=== PATIENT | female | born 1940 | race Caucasian/White ===

== ENCOUNTER → 2016-08-02 | Outpatient (CLI) | payer OTHER | LOC: BHLMT 14:00 | PROVIDERS: ATTEND Internal Medicine Cardiovascular Disease | DX: R07.9 Chest pain, unspecified (principal) | CPT/HCPCS: 78452; 93017; A9500; J2785 ==

== ENCOUNTER 2016-08-10 05:51 | Day surgery (SDC) | payer OTHER ==
[2016-08-10] MEDS ORDERED: LR 1,000 ML IV ONE (06:23)
[2016-08-10] MEDS ORDERED: LIDOCAINE 1% 2 ML INJ ID PRN (06:23)
--- NOTE | 2016-08-10 07:23 | PDANEPAE ---
ANE Past Medical History - Cardiovascular History Hx Hypertension: No Hx Arrhythmias: No Hx Chest Pain: No Hx Coronary Artery / Peripheral Vascular Disease: No Hx CHF / Valvular Disease: No Hx Palpitations: No - Pulmonary History Hx COPD: No Hx Asthma/Reactive Airway Disease: No Hx Recent Upper Respiratory Infection: No Hx Oxygen in Use at Home: No - Neurologic History Hx Cerebrovascular Accident: No Hx Seizures: Yes Hx Dementia: No - Endocrine History Hx Diabetes: No Hypothyroid: Yes - Renal History Hx Renal Disorders: No - Liver History Hx Hepatic Disorders: No - Neurological & Psychiatric Hx Hx Neurological and Psychiatric Disorders: Yes - Cancer History Hx Cancer: Yes - Congenital Disorder History Hx Congenital Disorders: No - GI History Hx Gastrointestinal Disorders: Yes - Chronic Pain History Chronic Pain: No ANE Review of Systems - Exercise capacity METS (RN): 4 METS ANE Patient History - Allergies Allergies/Adverse Reactions: adhesive tape Allergy (Verified 08/09/16 15:44) Rash carbamazepine [From Tegretol] Allergy (Verified 08/09/16 15:44) Rash phenobarbital Allergy (Verified 08/09/16 15:44) Rash phenytoin [From Dilantin] Allergy (Verified 08/09/16 15:44) Rash promethazine [From Phenergan] Allergy (Verified 08/09/16 15:44) Other-Enter Comments - Home Medications Home Medications: Alprazolam 08/09/16 [Last Taken 08/09/16] Citracal 08/09/16 [Last Taken 08/09/16] LANSOPRAZOLE 08/09/16 [Last Taken 08/09/16] Levothyroxine 08/09/16 [Last Taken 08/09/16] Multivitamin 08/09/16 [Last Taken 08/09/16] Prolia 08/09/16 [Last Taken 08/09/16] Sertraline HCl 08/09/16 [Last Taken 08/09/16] Triamcinolone Acetonide 08/09/16 [Last Taken 08/09/16] Vitamin B-12 08/09/16 [Last Taken 08/09/16] traMADol 08/09/16 [Last Taken 08/09/16] - NPO status NPO Since - Liquids (Date): 08/09/16 NPO Since - Liquids (Time): 21:30 NPO Since - Solids (Date): 08/09/16 NPO Since - Solids (Time): 09:30 - Smoking Hx Smoking Status: Former smoker ANE Labs/Vital Signs - Vital Signs Blood Pressure: 143/70 Heart Rate: 60 Respiratory Rate: 12 O2 Sat (%): 94 Height: 152.4 cm Weight: 62.596 kg ANE Physical Exam - Airway Mallampati Score: Class 2 - ASA Status ASA Status: II
--- NOTE | 2016-08-10 07:26 | PDGENHP ---
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 Cardiac Exam Normal S1 S2. Abdomen Benign soft no HSM normal BS Cardiorespiratory Assessment: Normal
[2016-08-10] MEDS ORDERED: MIDAZOLAM 2 MG/2 ML VIAL ONE (07:35)
[2016-08-10] MEDS ORDERED: PROPOFOL/EMULSION 500 MG/50 ML BOTTLE IV ONE (07:36)
[2016-08-10] MEDS ORDERED: fentaNYL 100 MCG/2 ML INJ IVP PRN (08:09)
[2016-08-10] MEDS ORDERED: ONDANSETRON 4 MG/2 ML VIAL IVP PRN (08:09)
[2016-08-10] MEDS ORDERED: NALOXONE HCL 0.4 MG/ML INJ IVP PRN (08:09)
--- NOTE | 2016-08-10 08:11 | POSTOPPROG ---
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
--- NOTE | 2016-08-10 08:11 | POSTANESTH ---
Post Anesthetic Evaluation Respiratory Status: Normal, Stable Level of Consciousness/Mental Status: Mildly Sleepy, Arousable Pain Control: Adequate, Prn Tx Ordered Nausea/Vomiting Control: Adequate, Prn Tx Ordered Complications Possibly Related to Anesthesia: None Noted
[2016-08-10 09:03] VITALS: RESP 16
[2016-08-10 09:52] VITALS: BP 125/70; PULSE 65; TEMP 97.7; O2SAT 94
--- NOTE | 2016-08-10 13:26 | GPN ---
[f rep st] PROCEDURE NOTE DATE OF PROCEDURE: 08/10/2016 PROCEDURE: Colonoscopy with biopsy and tattoo. PREOPERATIVE DIAGNOSIS: Invasive adenocarcinoma found in 7 mm polyp in ascending colon, presents to day for additional biopsies and tattooing. POSTOPERATIVE DIAGNOSIS: Polypectomy site seen in the ascending colon, status post biopsy and tatto o. A second polypectomy site was also seen in the transverse colon (70 cm), that was also biopsied and tattooed. INDICATIONS: A very pleasant 76-year-old woman, who presented for routine colonoscopy on July 30. She has a prior history of colon polyps and she also has a sister who had colon cancer. She u nderwent colonoscopy with finding of diverticulosis in the sigmoid colon. She had 2 polyps, 1 in th e cecum, they were 5-6 mm in size. She had a 7 mm polyp in the ascending colon that was sessile, th at was cold snare excised. She had 2 polyps in the transverse colon that were cold biopsy excised. Biopsies of polyps were tubular adenoma; however, the 7 mm polyp in the ascending colon that was co ld snare excised was an invasive adenocarcinoma. She presents now for further evaluation and repeat colonoscopy to identify polypectomy sites for additional biopsies and tattooing, to aid surgery in complete excision. PHYSICAL EXAM: VITAL SIGNS: Stable. LUNGS: Clear. CARDIAC: Normal S1, S2 without murmur. PERMIT: The procedure was explained to the patient. Risks and benefits of the procedure were outli stephanie to the patient. Informed consent was obtained. PREOPERATIVE MEDICATIONS: Sedation administered by Anesthesia/anesthesiologist. FINDINGS OF PROCEDURE: The patient was placed in the left lateral decubitus position. The GIF-180 video scope was passed per rectum under direct visualization to the cecum. The cecum was identified by visualization of ileocecal valve and appendiceal orifice. Colonic prep was good. Colonoscope w ithdrawn with inspection of colonic segments. The cecum was normal. In the ascending colon, there did appear to be a small polypectomy site from previous ascending colon polypectomy. Biopsies were obtained and polypectomies site was injected with tattoo/carbon black 2 cc. At 70 cm in the transve rse colon was a second polypectomy site. This was also biopsied and tattooed with carbon black. Co lonoscope was withdrawn. The remainder of the colon appeared normal, with normal transverse colon, splenic flexure, descending colon, and sigmoid colon. There was moderate diverticulosis involving t he sigmoid colon. Rectum was normal. Retroflex of the rectum was unremarkable, with the finding of small internal hemorrhoids. Colonoscope was un-retroflexed and withdrawn. IMPRESSION: Left-sided diverticulosis. Two previous polypectomy sites were identified. The more p roximal site is the area of concern with prior adenocarcinoma found on resection from polypectomy on 07/30/2016. The more distal site probably represents one of the benign tubular adenomas that had b een removed. RECOMMENDATIONS: 1. Await biopsy results. 2. Given that the adenocarcinoma was invasive, would recommend surgical referral. 3. We will await biopsy results. /[id number]/MODL
== END 2016-08-10 09:51 | disposition home or self-care (01) ==
LOC: FSGY 05:51
PROVIDERS: ATTEND Internal Medicine Gastroenterology
DX: C18.2 Malignant neoplasm of ascending colon (principal); K57.30 Diverticulosis of large intestine without perforation or abscess without bleeding; K64.8 Other hemorrhoids; Z86.010 Personal history of colon polyps; Z80.0 Family history of malignant neoplasm of digestive organs; E03.9 Hypothyroidism, unspecified; I10 Essential (primary) hypertension; Z85.89 Personal history of malignant neoplasm of other organs and systems
CPT/HCPCS: J2250; J2704